=== PATIENT | female | born 1965 | race Caucasian/White ===

== ENCOUNTER → 2022-04-09 16:45 | Outpatient (CLI) | payer OTHER, SELFPAY ==
--- NOTE | ~2022-04-09 | XR_ITS ---
XR knee LT min 4V 04/09/2022 17:19 Indication: Left knee pain Procedure: 4 views left knee Comparison: No prior studies for comparison. Findings: There is severe tricompartment osteoarthritis of the left knee. No acute fracture or trauma tic malalignment. No significant joint effusion. No foreign bodies. Impression: 1: Severe tricompartment osteoarthritis of the left knee. Reviewed, dictated and finalized at location A. LATORY INTERN Impression: 1: Severe tricompartment osteoarthritis of the left knee.
--- NOTE | ~2022-04-09 | XR_ITS ---
XR knee RT min 4V 04/09/2022 17:20 Indication: Right knee pain Procedure: 4 views right knee Comparison: No prior studies for comparison. Findings: There is severe tricompartment osteoarthritis of the right knee. No acute fracture or traum atic malalignment. Degenerative change most advanced in the medial compartment. Impression: 1: Severe tricompartment osteoarthritis the right knee. Reviewed, dictated and finalized at location A. EMENTATION DIRECTOR Impression: 1: Severe tricompartment osteoarthritis the right knee.
== END ==
PROVIDERS: PCP Nurse Practitioner Family; Visit Provider Nurse Practitioner Family
DX: M17.0 Bilateral primary osteoarthritis of knee (principal)
CPT/HCPCS: 73564

== ENCOUNTER 2023-01-12 08:06 | Outpatient (CLI) | payer OTHER, SELFPAY ==
--- NOTE | 2023-01-12 08:58 | ECG_ITS ---
Measurements Intervals [place] Rate: 56 P: 41 WA: 141 QRS: 33 QRSD: 80 T: 20 QT: 400 QTc: 386 Interpretive Statements SINUS BRADYCARDIA DELAYED PRECORDIAL R/S TRANSITION BASELINE ARTIFACT- I, II, III, AVR, AVL, AVF BORDERLINE ECG NO PREVIOUS ECG AVAILABLE FOR COMPARISON Electronically Signed On 01-12-2023 9:37:40 CDT by Johnnie Grullon D.O.
[2023-01-12 09:24] LABS: Basophils Absolute Auto 0.1 K/mm3 (0.0-0.1); Basophils Percent Auto 1.1 % (0.2-1.2); Eosinophils Absolute Auto 0.2 K/mm3 (0-0.3); Hematocrit 39.4 % (37.0-47.0); Hemoglobin 12.9 g/dL (12.0-15.0); Immature Granulocyte Absolute 0.01 K/mm3 (0.00-0.031); Immature Granulocyte Percent A 0.2 % (0-0.5); Lymphocytes Percent Auto 40.8 % (18.3-44.2); Mean Corpuscular HGB Conc 32.7 g/dl (32-36); Mean Corpuscular Volume 91.6 fl (80-100); Mean Platelet Volume 11.7 fl (7.4-10.4); Monocytes Absolute Auto 0.4 K/mm3 (0.1-0.6); Monocytes Percent Auto 6.7 % (2.6-8.5); Neutrophils Absolute Auto 2.6 K/mm3 (1.3-6.7); Neutrophils Percent Auto 48.2 % (45.5-73.1); Platelet Count Result 207 k/mm3 (150-375); Red Cell Distribution Width 12.9 % (11.5-14.5); White Blood Count 5.4 K/mm3 (4.5-10.0)
[2023-01-12 09:32] LABS: Estimated Glomerular Filt Rate > 60; Glucose 95 mg/dL (65-110)
[2023-01-12 09:51] LABS: Urine Cotinine NEGATIVE
== END 2023-01-12 08:07 | disposition home or self-care (01) ==
PROVIDERS: PCP Nurse Practitioner Family; Visit Provider Orthopaedic Surgery
DX: M17.12 Unilateral primary osteoarthritis, left knee (principal); Z01.818 Encounter for other preprocedural examination; R94.31 Abnormal electrocardiogram [ECG] [EKG]
CPT/HCPCS: 80307; 82040; 82565; 82947; 83036; 85025; 86850; 86900; 86901; 87081; 93005

== ENCOUNTER 2023-01-24 00:51 | Day surgery (SDC) | payer OTHER, SELFPAY ==
[2023-01-12 08:19] VITALS: BMI 34.9
--- NOTE | 2023-01-12 08:42 | PC.NURSE ---
Report to the Outpatient Waiting Room, entrance under the green pavilion located off [facility], at time _0600 on date __01/24/23 . Planned Procedure Time: ___0730 . Time changes happen often and if your time is changed the preop area will call you the afternoon before. - You and your visitor will be asked to self-screen and do not enter if you have any COVID symptoms. - A mask is optional within the hospital at this time. Patients may have clear liquids (water, carbonated beverages, clear teas, apple juice) until 3 hours prior to surgery with a maximum of 20 ounces. - No food from midnight until time of surgery - Infants may have breast milk until 4 hours before surgery, infant formula 6 hours prior to surgery. - Children will be allowed to drink immediately following surgery. If applicable, please bring a bottle or sippy cup to assist with drinking. Juice, water, soda, and popsicles are readily available. For infants on formula, please bring formula the day of surgery. Pacifiers are allowed. Take the following medications with a SIP of water the morning of surgery: ____NONE DO NOT STOP ANY OF YOUR OTHER PRESCRIPTION MEDICATIONS PRIOR TO SURGERY ?EXCEPT THE FOLLOWING Medications to discontinue per physician __ALL VITAMINS AND SUPPLEMENTS 3 DAYS PRE OP. LAST DOSE 01/20/23 Please no make-up, nail martiniquais, hairspray, perfume, deodorant, or body powder the day of surgery. No jewelry (including any body piercings) or valuables the day of surgery, leave them at home. Please take a shower or bath the night before, or the morning of, surgery with an antibacterial soap. Wear comfortable, loose fitting clothing. Children are encouraged to wear pajamas. - Jewelry must be removed prior to entering the operating room. Rings and piercings that are not removed may be cut off. - The hospital will not accept responsibility for valuables. - Please leave all valuables, including medications, at home the day of surgery. If you are going home after surgery, a licensed regional intermodal truck driver must drive you home. - NO public transportation without another adult if you receive anesthesia. - We recommend that an adult stay with you for 24 hours following discharge. - We also recommend that you do not drive, make important decision, drink alcoholic beverages, or take any drugs that were not prescribed by your health care provider for at least 24 hours after your discharge time. For Pediatric surgeries, we recommend two adults accompany the child home. Follow any additional instructions given to you from your surgeon. If you or anyone in your household have experienced Covid symptoms in the past week, please notify your surgeon or the nurse liaison at the phone number below for possible testing. VERBAL AND WRITTEN instructions given to _PATIENT and asked if any additional questions and then verbalized understanding. Patient advised to call surgeon office or pre surgery nurse liaison [phone] if any additional questions.
[2023-01-12 08:57] VITALS: BP 136/97; PULSE 65; RESP 18; TEMP 36.8; O2SAT 99
[2023-01-24] VITALS (15 sets, daily range): BP systolic 100–143; BP diastolic 61–86; PULSE 63–103; RESP 11–18; TEMP 36.2–37.2; O2SAT 88–100
--- NOTE | ~2023-01-24 | XR_ITS ---
EXAMINATION: [id number] DATE: 01/24/2023 10:26 INDICATION: Postoperative evaluation following left total knee arthroplasty. TECHNIQUE: Anteroposterior and lateral views of the left knee were obtained. COMPARISON: None. FINDINGS: Left total knee arthroplasty without patellar resurfacing appears well seated and in near anatomic al ignment. No fractures identified. Proximal and distal patellar enthesophytes with large heterotopic ossicle at the distal quadriceps tendon. Expected postoperative subcutaneous, intramedullary and intr a-articular gas. Cluster of multiple phleboliths seen in the subcutaneous fat along the medial aspect of the proximal calf. IMPRESSION: 1. Left total knee arthroplasty, negative for postoperative purposes. Reviewed, dictated and finalized at location A.
[2023-01-24] MEDS: ACETAMINOPHEN 500 MG TABLET 1000 MG PO (06:45)
--- NOTE | 2023-01-24 06:51 | WPDANESEPPF ---
Anes - Initial Pre Proc Eval Procedure: Operation Date: 01/24/23 07:30 Proposed Procedures p Left Total Knee Arthroplasty - Gene Fonseca MD Date/Time: 01/24/23 06:51 Surgeon: Gene Fonseca MD Pre Op Diagnosis: O A Lt Knee Patient Data Age: 57 Gender: F Height: 1.63 m Weight: 92.4 kg Last Vital Signs Temp 36.8 C 01/12/23 08:57 Pulse 65 01/12/23 08:57 Resp 18 01/12/23 08:57 BP 136/97 H 01/12/23 08:57 Pulse Ox 99 01/12/23 08:57 O2 Del Method Room Air 01/12/23 08:57 Allergies Allergy/AdvReac Type Severity Reaction Status Date / Time lisinopril Allergy Intermediate Headache Verified 01/19/23 09:00 Home Medications Medication Instructions Recorded Confirmed Type aspirin 81 mg chewable tablet 81 mg PO DAILY 05/26/22 01/19/23 History (Bernice Chewable Low Dose Aspirin) losartan 50 mg tablet 50 mg PO DAILY 05/26/22 01/19/23 History multivitamin 1 tablet PO DAILY 05/26/22 01/19/23 History calcium 600 mg capsule 1 mg PO QPM 01/12/23 01/19/23 History cetirizine 10 mg tablet (Zyrtec) 10 mg PO DAILY 01/12/23 01/19/23 History ibuprofen 600 mg tablet 600 mg PO Q6H PRN Pain 01/12/23 01/19/23 History omega-3 fatty acids 500 mg capsule 500 mg PO DAILY 01/12/23 01/19/23 History rivaroxaban 10 mg tablet (Xarelto) 10 mg PO DAILY PE prophylaxis s/p 01/19/23 01/19/23 Rx surgery #14 tabs Patient hx anesthesia problems: none Family hx anesthesia problems: none Results Review: All pre-operative results and documents have been reviewed as part of the pre-operative evaluation. [facility] Past Medical History Medical History Arthritis Degenerative arthritis of knee, bilateral History of blood clots right leg- 09/2014 Morbid obesity Surgical History Surgical History History of surgery on lower extremity 2014- detached quad Family History Family History Grandparent Cancer Heart disease Father Hypertension Heart disease Sibling Hypertension Mother Heart disease Social History Social History Smoking packs per day: 0.5 Smoking cigarettes per day: 10.0 Years smoked: 4 Smoking pack-years: 2.00 Smoking status: Former smoker Tobacco type: cigarettes Smoking end date: 05/09/86 Additional smoking assessment comments: DENIES ANY FORM OF TOBACCO USE Alcohol intake: former Drinks per week: 5 Alcohol use details: STOPPED DRINKING JULY 2022-WEIGHT LOSS Substance use type: does not use Lack of Transportation: No Lack of Food: Never True Current Housing: I Have Housing Concerned About Future Housing: No Difficulty Paying Gas/Electric Bills: No Difficulty Paying for Meds: No Currently Unemployed: No Education: High School Diploma/GED Difficulty w/ Childcare or Family Care: No Living arrangements: with family Occupation/Education: occupation 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 Informed Consent: The patient's anesthetic plan and its attendant risks and benefits were discussed with the patient/family/POA. Questions were solicited and answers provided to the satisfaction of the patient/family/POA.
[2023-01-24] MEDS: TRANEXAMIC ACID 1,000MG/ISO100 1,000 MG/100 ML BAG 200 MG IVPB (07:00)
[2023-01-24] MEDS: LACTATED RINGERS 1,000 ML 30 ML IV CONT ×2 (07:00→10:15)
--- NOTE | 2023-01-24 07:08 | WPDHPUPDATE1 ---
History and Physical Update Update Date/Time: 01/24/23 07:08 History and Physical has been reviewed, including an updated exam of the patient. There are NO changes in the patient's condition. Risks, benefits, and alternatives have been discussed and questions answered. Patient agrees to proceed with procedure.
--- NOTE | 2023-01-24 07:27 | WPDANESPNB ---
Anes - Peripheral Nerve Block Date/Time: 01/24/23 07:27 I have discussed with the patient/family/POA the placement of a peripheral nerve block for post-operative pain management, including associated risks, benefits, complications, and side effects. Alternative methods of post-operative analgesia were detailed. Questions were solicited and answers provided to the satisfaction of the patient/family/POA. Time-Out: A pre-procedural Time-Out was completed immediately before starting the procedure and confirmed: Patient Identification, Site, Procedure, Patient Position and the Availability of Requisite Equipment. Clinical Indications: Acute post-operative pain management requested by the operative surgeon. Nerve Block Insertion Note Anes-nerve block: adductor canal left Patient position: supine Skin prep: chlorhexidine Needle: 22 gauge, stimulating, insulated echogenic needle. Needle length: 80 mm Technique: ultrasound Injectate: bupivacaine 0.5% with epi 5 mcg/ml (30cc no epi) and dexamethasone (mg) Observations: tolerated well Complications: none Procedure start time:: 721 Procedure end time:: 728
[2023-01-24] MEDS: ceFAZolin 2 GM/D5W 50 ML 2 GM/50 ML BAG IVPB ×2 (07:28→16:36)
[2023-01-24] MEDS: ceFAZolin SODIUM 1 GM VIAL 2 GM IV PUSH (09:10)
--- NOTE | 2023-01-24 10:10 | P.OP_ITS ---
Procedure Note - Detailed Date of Procedure 01/24/23 Pre-op Diagnosis O A Lt Knee Post-op Diagnosis Same Procedure Performed Left total knee replacement with patelloplasty, no patellar resurfacing Surgeon Gene Fonseca MD Mechanical Systems Designer Andriy Avelar Anesthesia General Description of Procedure The patient was identified and proper site identified. In the preop holding area the anesthesia team performed a left-sided sub sartorial block after which the patient was taken to the operating room and transferred to the OR table positioning supine taking care to pad the torso and extremities. After general anesthetic induction and intubation a nonsterile tourniquet was placed high on the left thigh. The left lower extremity was prepped and draped in the usual sterile fashion. The extremity was exsanguinated and with the knee flexed tourniquet was inflated to 300 mmHg remaining up for approximately 73 minutes. An anterior midline incision was made and a modified medial parapatellar approach was used. Infra and suprapatellar fat pads were excised. Patellar marginal osteophytes were debrided. Using the intramedullary guide the distal femur was cut in the proper orientation for the size 7 femoral component. Using the extramedullary guide the tibia was cut perpendicular to the long axis protecting collateral ligaments and popliteal structures. It was sized to a 7M. Flexion and extension gaps were balanced. Trial reduction was undertaken and the weight-bearing line was noted to passed through the center of the joint. Proximal tibia was drilled and punched in the proper orientation for the real component. Trial components were removed. The bone surfaces were washed with pulsatile lavage and dried. The real components were cemented simultaneously. The knee was held in extension until the cement had cured. Excess cement was removed from the joint. After trialing it was determined that the 11 mm insert gave full range of motion from 0-120 degrees of flexion and the patella tracked in the femoral groove with no lift-off. After final lavage the joint the real 11 insert was placed and secured with a locking bar. A Betadine and saline wash was placed into the wound and allowed to sit for approximately 3 minutes and then evacuated. Periarticular tissues were infiltrated with 60 cc of the arthroplasty solution. Surgicel powder was applied into the wound during the closure. The extensor mechanism was repaired with #2 Vicryl suture and 0 looped PDS suture. Subcu was reapproximated with 2. Vicryl, 3-0 Monocryl, 2-0 Quill and tissue adhesive for the skin. A sterile dressing was applied. She tolerated the procedure well, was awakened and extubated, transferred to the bed and was taken to recovery area in stable condition. There were no known intraoperative complications. Perioperative antibiotics were administered. Estimated Blood Loss 100 Tourniquet Time 73 Drains No Packing No Pathology None sent Complications No immediate complications Condition Stable Disposition PACU [facility] Billing Surgery - Charge Forward: Surgery Billing ([id number])
[2023-01-24] MEDS: fentaNYL CITRATE INJ (*CRX) 100 MCG/2 ML VIAL 25 MCG IV PUSH ×6 (10:22→10:38)
[2023-01-24] MEDS: HYDROmorphone HCL INJ (*CRX) 1 MG/ML SYR 0.5 MG IV PUSH ×2 (10:40→10:45)
--- NOTE | 2023-01-24 11:48 | ADMGEN ---
This patient, Argenis Scott, was admitted to Medical Room 242-. Patient/family oriented to hospital policies and general routines including ID bracelet, bed and alarms, visiting hours, pain management, procedures, bathroom and other care routines, personal items, smoking policy, room service/diet, and visiting hours. Information on how to activate the Rapid Response Team has been discussed. Patient/Family are encouraged to report perceived risks to care and to ask questions if they do not understand what they are told or what they should do.
[2023-01-24] MEDS: SODIUM CHLORIDE 0.9% IV 1,000 ML 125 ML IV CONT (12:24)
[2023-01-24] MEDS: oxyCODONE/ACETAMINOPHEN (*CRX) 5-325 MG TABLET 1 TABLET PO ×3 (12:28→20:41)
[2023-01-24] MEDS: SENNA/DOCUSATE SODIUM TABLET 2 TAB PO (16:36)
[2023-01-24] MEDS: CELECOXIB 200 MG CAPSULE PO (16:36)
[2023-01-24] MEDS: CALCIUM CARBONATE (OSCAL) 500 MG TABLET PO (17:52)
[2023-01-24] MEDS: FAMOTIDINE 20 MG TABLET PO (20:41)
[2023-01-25] MEDS: ceFAZolin 2 GM/D5W 50 ML 2 GM/50 ML BAG IVPB ×2 (00:51→10:31)
[2023-01-25] MEDS: oxyCODONE/ACETAMINOPHEN (*CRX) 5-325 MG TABLET 1 TABLET PO ×4 (00:51→12:28)
[2023-01-25 01:01] VITALS: BP 99/63; PULSE 63; RESP 17; TEMP 36.6; O2SAT 100
[2023-01-25 05:00] VITALS: BP 117/73; PULSE 71; RESP 17; TEMP 36.6; O2SAT 100
--- NOTE | 2023-01-25 07:53 | PM.DS ---
DS: Admitting Diagnosis Discharge Date 01/25/2023 Admitting Diagnosis Left knee osteoarthritis DS: Discharge Diagnosis Discharge Diagnosis (1) Status post total left knee replacement: Code(s): Z96.652 - Presence of left artificial knee joint Status: Acute Plan 57-year-old female postop day 1 after left total knee arthroplasty and patelloplasty with Dr. Fonseca. Overall doing very well and was able to get up and mobilize with physical therapy without issue yesterday. She will continue to use the walker as a gait aid. Dressing over the knee can come off in a couple of days and then she will leave it open to air. She is to inform us if she notices any drainage from the incision. She will take Xarelto 1 time daily for 2 weeks for DVT prophylaxis. Therapy has been scheduled to start next week. She is also scheduled to be seen in our office for wound check in 2 weeks. She will call us if she has any further questions or concerns regarding her care. DS: Summary Hospital Course Reason for hospitalization: Observation after outpatient procedure Hospital Course: 57-year-old female admitted for observation after outpatient left total knee arthroplasty. Uneventful overnight stay. Pain is well controlled. She will continue to mobilize with physical therapy prior to discharge. Status at Discharge Functional status at discharge: uses cane/walker Overall status at discharge: patient is progressing back to baseline Time Spent with Patient Time attestation: Total time spent providing and/or coordinating discharge services: Time spent: Less than 30 minutes Exam Const: General: cooperative, comfortable and no acute distress; No confusion Orientation/consciousness: No confusion HENMT: Head: normal to inspection Ears: hearing grossly normal bilaterally Mouth: Yes moist mucous membranes Eyes: General: appearance normal, both eyes and all related structures Resp: Effort & Inspection: normal respiratory effort and able to speak in complete sentences GI: Inspection: normal to inspection Skin: General skin exam: normal color and no erythema Neuro: General: No confusion Cranial nerves: Yes Normal hearing present Speech: normal speech Sensory Exam: normal sensation Extrem: Other: Exam of the left knee demonstrates a clean and dry surgical dressing. There is appropriate amount of swelling at the left knee, consistent with recent total knee arthroplasty. Calves negative. Neurovascular status left lower extremity is intact. Psych: Mental Status: mental status grossly normal Discharge Plan Discharge Patient Disposition: Home, Self-Care Discharge Instructions: 3 times daily for 20 minutes each time, reclining in bed with ice packs over the incision and a pillow underneath the calf of the affected leg, not under the knee. Your wound is glued so it is okay to remove the dressing, get into the shower and get the wound wet in two days. Be sure to read through all the information that came from a my office and the hospital. Most of the answers you will need can be found that material. Call the office with any questions that you cannot find answers to, or concerns you may have. After the Xarelto is completed, start taking one coated 325 mg aspirin daily and do this for four more weeks. Please call [facility] at as soon as possible to arrange for/verify your follow-up appointment to be seen in 2 weeks. Also, call the office with any orthopedic/surgical related questions prior to follow-up. Be sure to get up and move around several times daily but do not overdo it. Take the arthritis formula Tylenol 650 mg tablet on an 8 hour schedule. A good 8 hour schedule is: 6:00 a.m., 2:00 p.m., 10:00 p.m. you may take the prescribed pain medication along with the Tylenol; it is not to be taken instead of the Tylenol. I would like for you to take the Tylenol on a schedule for 2-3 weeks. Use the laxative Senekot S t
--- NOTE | 2023-01-25 08:06 | WPDANESPN ---
Anes - Prog Note Post-Op Date/Time: 01/25/23 08:06 Cardiovascular status: normal Respiratory status: normal Airway patency: baseline Mental status: baseline Post-Op hydration status: normal Vital Signs: Last Vital Signs Temp 36.6 C 01/25/23 05:00 Pulse 71 01/25/23 05:00 Resp 17 01/25/23 05:00 BP 117/73 01/25/23 05:00 Pulse Ox 100 01/25/23 05:00 O2 Del Method Room Air 01/24/23 20:00 O2 Flow Rate 2 01/24/23 11:30 Pain Score (VAS): 10 I/O: Intake & Output 01/24/23 01/25/23 01/25/23 23:59 07:59 15:59 Intake Total 1554 50 Output Total 800 850 Balance 754 -800 Post-procedural complaints: none Patient Feedback: Patient satisfied with anesthetic care.
[2023-01-25 09:16] VITALS: BP 110/71; PULSE 57; RESP 18; TEMP 35.8; O2SAT 100
[2023-01-25] MEDS: SENNA/DOCUSATE SODIUM TABLET 2 TAB PO (10:25)
[2023-01-25] MEDS: LOSARTAN POTASSIUM 50 MG TABLET PO (10:25)
[2023-01-25] MEDS: polyethylene glycoL 3350 17 GM POWD.PACK PO (10:25)
[2023-01-25] MEDS: FAMOTIDINE 20 MG TABLET PO (10:25)
[2023-01-25] MEDS: MULTIVITAMINS THERAPEUTIC TAB (*BKC) 1 TABLET PO (10:26)
[2023-01-25] MEDS: RIVAROXABAN 10 MG TABLET PO (10:26)
[2023-01-25] MEDS: LORATADINE 10 MG TABLET PO (10:26)
[2023-01-25] MEDS: CELECOXIB 200 MG CAPSULE PO (10:26)
== END 2023-01-25 12:40 | disposition home or self-care (01) ==
LOC: ANHSURGERY 09:58 → ANH2MED 11:34
PROVIDERS: PCP Nurse Practitioner Family; Visit Provider Orthopaedic Surgery
PROC: (CPT 27447; principal; 2023-01-24 07:30)
DX: M17.12 Unilateral primary osteoarthritis, left knee (principal); G89.18 Other acute postprocedural pain; Z86.718 Personal history of other venous thrombosis and embolism; Z79.01 Long term (current) use of anticoagulants; Z87.891 Personal history of nicotine dependence; E66.9 Obesity, unspecified; Z68.35 Body mass index [BMI] 35.0-35.9, adult
CPT/HCPCS: 27447; 64449; 73560; 80307; 82040; 82565; 82947; 83036; 85025; 86850; 86900; 86901; 87081; 93005; 97110; 97161; 97165; 97530; 97535; A9270; C1713; J0171; J0690; J1100; J1170; J1885; J2250; J2270; J2405; J2704; J2795; J3010; J7030; J7120

== ENCOUNTER 2023-03-03 14:15 | Outpatient (RCR) | payer OTHER, SELFPAY ==
--- NOTE | 2023-01-31 09:00 | OPREHPOC ---
Outpatient Therapy Plan of Care This is a Multidisciplinary Plan of Care that may contain components documented by all disciplines (PT, OT, and ST.) PT Problem 1 PT Problem #1 Knowledge Deficit PT Goal 1 Goal 1* indep with HEP 2* assistive device education for lesser device as indicated PT Problem 2 PT Problem #2 Pain PT Goal 1 Goal 1* pain rating at 4/10 at worst 2* pt report walking/standing activity tolerance of 30 minutes PT Problem 3 PT Problem #3 Impaired Range of Motion PT Goal 1 Goal decrease circumferential measurement of L knee: 1* superior patella 48 cm 2* mid patella 46 cm 3* inferior to patella 42 cm sitting L knee active ROM: 4* extension 0' 5* flexion 110' PT Problem 4 PT Problem #4 Impaired Strength PT Goal 1 Goal increase strength L KNEE, pt able to perform 20 reps: 1* supine SLR 2* side lying hip abduction 3* sitting knee extension to 0' 4* prone hip extension 5* supine/sit without use of UE to move L leg 6* sit/stand without use of UE's PT Problem 5 PT Problem #5 Impaired Functional Mobil PT Goal 1 Goal 1* 2 minute walking test distance 350' 2* up/down 4 steps without hand railing, indep 3* 5 reps sit/stand 14 seconds
--- NOTE | 2023-01-31 09:00 | PTOPEVAL1 ---
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 Reported Pain Level Pain Score Self Report Additional Pain Score Comments pain range in past few days: 0-8/10; tight, hurts at incision area; decrease pain with ice, elevation and pain meds; taking pain meds every 4 hr- oxycodone increase pain with exercises, up/walking about 10- 15 minutes; have been getting up and walking every hour during day; is standing for light home tasks; sleeping is OK--not waking up due to knee pain Assessment PT Clinical Summary Argenis is s/p L TKR. Prior to surgery she was active. Her history includes surgery in 2013 for L quad rupture and patellar fracture. She is motivated and doing HEP, walking every hour at home. With the evaluation, she has decreased strength of L hip and knee with knee ROM (-5') to 70'; there is edema over L knee with 3 circumferential measurements 4 to 9 cm larger than R; she is using the wheeled walker with decreased hip and knee flexion. Skilled PT services are indicated for modalities to decrease pain and edema, stim to facilitate quad activation; therapeutic exercises to increase L knee ROM and strength, education for gait training and progression of HEP. Plan of Care Interventions Electrical Stimulation,Gait Training,Hot Pack/Cold Pack,Intermittent Compression,Manual Therapy, Neuro Re-education,Patient Education, Therapeutic Activities,Therapeutic Exercise,Other Other Interventions taping PT Services Indicated Yes Treatment Frequency and 2x/wk for 5 w
--- NOTE | 2023-03-03 14:47 | PTOPDC ---
Assessment and note entered by Genny Cazares, PT Evaluation Information Assessment Status Discharge Diagnosis s/p L TKR Onset 01-24-23 Subjective Information returned to work 40 hours/week; use the cane and sometimes without; to see Dr Snell for other knee surgery since Dr Fonseca is retiring; is doing all of her usual home and work tasks; feel comfortable with mobility/ no issues; is ready to be done with therapy and keep doing her exercises at home. Reported Pain Level Pain Score Self Report Pain Score Self Report Additional Pain Score Comments numbness over knee; 0-1/10 sore, achy and tight; NOT painful taking tylenol arthritis; have not been using ice in the past week; instruct on PRN use of ice; can do all standing and walking activities and not have to sit down due to knee pain; also has pain in R knee- to have TKR as soon as she can schedule it. Assessment PT Clinical Summary Argenis has received 10 PT sessions. Active L knee ROM in sitting is 0'- 120' without pain, reports tight at end range of flexion. She has improved in all areas: pain decreased to 1-2/10; ROM of knee; strength of knee; gait without device or cane use; 2 minute walking test distance of 550'' decreased edema over knee with 3/3 of the circumferential measurements; education completed for HEP and gait training. The goals were achieved. Discharge PT services. She is to continue with her HEP and progress walking as tolerated. Plan of Care PT Services Indicated No
== END 2023-03-03 15:08 | disposition home or self-care (01) ==
LOC: ANHPT 14:15
PROVIDERS: PCP Nurse Practitioner Family; Visit Provider Orthopaedic Surgery
DX: Z47.1 Aftercare following joint replacement surgery (principal); Z96.652 Presence of left artificial knee joint
CPT/HCPCS: 97014; 97016; 97110; 97112; 97116; 97140; 97161; 97530; G0283

== ENCOUNTER 2023-05-19 07:55 | Outpatient (CLI) | payer OTHER, SELFPAY ==
[2023-05-19 09:06] LABS: Basophils Absolute Auto 0.1 K/mm3 (0.0-0.1); Basophils Percent Auto 1.1 % (0.2-1.2); Eosinophils Absolute Auto 0.2 K/mm3 (0-0.3); Eosinophils Percent Auto 3.2 % (0-4.4); Hematocrit 39.4 % (37.0-47.0); Hemoglobin 12.6 g/dL (12.0-15.0); Immature Granulocyte Absolute 0.02 K/mm3 (0.00-0.031); Immature Granulocyte Percent A 0.3 % (0-0.5); Lymphocytes Absolute Auto 2.55 K/mm3 (0.9-3.2); Lymphocytes Percent Auto 40.8 % (18.3-44.2); Mean Corpuscular Hemoglobin 30.4 pg (26-34); Mean Corpuscular Volume 95.2 fl (80-100); Mean Platelet Volume 9.9 fl (7.4-10.4); Monocytes Absolute Auto 0.4 K/mm3 (0.1-0.6); Monocytes Percent Auto 5.8 % (2.6-8.5); Neutrophils Absolute Auto 3.1 K/mm3 (1.3-6.7); Neutrophils Percent Auto 48.8 % (45.5-73.1); Platelet Count Result 265 k/mm3 (150-375); Red Blood Count 4.14 M/mm3 (4.2-5.4); White Blood Count 6.3 K/mm3 (4.5-10.0)
[2023-05-19 09:17] LABS: Anion Gap 6 mmol/L (8-16); Blood Urea Nitrogen 16 mg/dL (7-17); Calcium 9.8 mg/dL (8.4-10.2); Carbon Dioxide 30 mmol/L (22-30); Chloride 103 mmol/L (98-107); Estimated Glomerular Filt Rate > 60; Glucose 91 mg/dL (65-110); Potassium 4.8 mmol/L (3.4-5.0); Sodium 139 mmol/L (137-145)
[2023-05-19 10:05] LABS: Hemoglobin A1C 5.1 % (<5.7)
[2023-05-19 10:23] LABS: Urine Cotinine NEGATIVE
== END 2023-05-19 07:56 | disposition home or self-care (01) ==
LOC: ANHSURGERY 08:04
PROVIDERS: PCP Nurse Practitioner Family; Visit Provider Orthopaedic Surgery
DX: Z01.818 Encounter for other preprocedural examination (principal); M17.11 Unilateral primary osteoarthritis, right knee
CPT/HCPCS: 80048; 80307; 82040; 83036; 85025; 87081

== ENCOUNTER 2023-06-13 00:32 | Day surgery (SDC) | payer OTHER, SELFPAY ==
--- NOTE | 2023-05-19 07:46 | PC.NURSE ---
PRE-OP INSTRUCTIONS, PLEASE READ CAREFULLY Report to the Outpatient Waiting Room, entrance under the green pavilion located off [facility], at time _0600_ on date _06/13/23_. Planned Procedure Time: _0730_. PACK A SMALL OVERNIGHT BAG AND LEAVE IN THE CAR ALONG WITH YOUR WALKER Time changes happen often and if your time is changed the preop area will call you the afternoon before. - You and your visitor will be asked to self-screen and do not enter if you have any COVID symptoms. - A mask is optional within the hospital at this time. -VISITING HOURS 8AM-8PM Patients may have clear liquids (water, carbonated beverages, clear teas, apple juice) until 3 hours prior to surgery (0430 AM) with a maximum of 20 ounces. - No food from midnight until time of surgery Take the following medications with a SIP of water the morning of surgery: _TYLENOL IF NEEDED_ DO NOT STOP ANY OF YOUR OTHER PRESCRIPTION MEDICATIONS PRIOR TO SURGERY ?EXCEPT THE FOLLOWING Medications to discontinue per DR. TRAMMELL - _ASPIRIN, IBUPROFEN 7 DAYS PRIOR TO SURGERY, Date to take last dose 06/05/23_ Medications to discontinue per ANESTHESIA - _MULTIVITAMIN 3 DAYS PRIOR TO SURGERY, Date to take last dose 06/09/23_ Please no make-up, nail bengali, hairspray, perfume, deodorant, or body powder the day of surgery. No jewelry (including any body piercings) or valuables the day of surgery, leave them at home. Please take a shower or bath the night before, or the morning of, surgery with an antibacterial soap. Wear comfortable, loose fitting clothing. - Jewelry must be removed prior to entering the operating room. Rings and piercings that are not removed may be cut off. - The hospital will not accept responsibility for valuables. - Please leave all valuables, including medications, at home the day of surgery. If you are going home after surgery, a licensed local company truck driver must drive you home. - NO public transportation without another adult if you receive anesthesia. - We recommend that an adult stay with you for 24 hours following discharge. - We also recommend that you do not drive, make important decision, drink alcoholic beverages, or take any drugs that were not prescribed by your health care provider for at least 24 hours after your discharge time. Follow any additional instructions given to you from your surgeon. If you or anyone in your household have experienced Covid symptoms in the past week, please notify your surgeon or the nurse liaison at the phone number below for possible testing. Instructions given to _PATIENT_and asked if any additional questions and then verbalized understanding. Patient advised to call surgeon office or pre surgery nurse liaison [phone] if any additional questions.
[2023-05-19 08:24] VITALS: BP 140/80; PULSE 64; RESP 18; TEMP 36.6; O2SAT 100; BMI 34.2
--- NOTE | 2023-06-10 07:53 | PM.IMHP ---
H&P: HPI History of Present Illness Date/Time: 06/10/23 07:53 Chief Complaint: Right knee DJD Narrative: 58 Year old female presents today for a right total arthroplasty. patient has been having pain in her knees for years. She had left total knee arthroplasty done last year and had a good recovery he is happy with her results. She has severe medial compartment osteoarthritis in the right knee with continued symptoms. She has tried different nonsurgical approaches to treat the symptoms but they have not improved. She has pain on a daily basis and is affecting her daily lifestyle. She would like to proceed with total knee arthroplasty at this point. Review of Systems Review of Systems: All systems reviewed & are unremarkable except as noted in HPI and below PMFSH Past Medical History Medical History Arthritis Degenerative arthritis of knee, bilateral History of blood clots right leg- 09/2014 Morbid obesity Surgical History Surgical History History of surgery on lower extremity 2013- quad Status post total left knee replacement With patellaplasty 01/24/2023 Family History Family History Grandparent Cancer Heart disease Father Hypertension Heart disease Sibling Hypertension Mother Heart disease Social History Social History Smoking packs per day: 0.5 Smoking cigarettes per day: 10.0 Years smoked: 4 Smoking pack-years: 2.00 Smoking status: Former smoker Tobacco type: cigarettes Second hand tobacco smoke exposure: No Smoking end date: 05/09/86 Additional smoking assessment comments: PT DENIES ALL FORMS OF TOBACCO USE Alcohol intake: current Drinks per week: 5 Alcohol use details: STOPPED 07/29-03/31 FOR WEIGHT LOSS - NOW MAYBE 1 DRINK EVERY OTHER WEEEK Substance use: never Substance use type: does not use Lack of Transportation: No Lack of Food: Never True Current Housing: I Have Housing Concerned About Future Housing: No Difficulty Paying Gas/Electric Bills: No Difficulty Paying for Meds: No Currently Unemployed: No Education: High School Diploma/GED Difficulty w/ Childcare or Family Care: No Living arrangements: with family Occupation/Education: occupation 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/ Spiritual care concerns: No Meds Home Medications and Allergies Home Medications Medication Instructions Recorded Confirmed Type losartan 50 mg tablet 50 mg PO DAILY 05/26/22 05/19/23 History multivitamin 1 tablet PO DAILY 05/26/22 05/19/23 History cetirizine 10 mg tablet (Zyrtec) 10 mg PO DAILY 01/12/23 05/19/23 History acetaminophen 650 mg 650 mg PO Q12H PRN Pain 02/08/23 05/19/23 History tablet,extended release (Tylenol Arthritis Pain) aspirin 81 mg capsule 81 mg PO DAILY 05/19/23 05/19/23 History ibuprofen 600 mg tablet 600 mg PO Q6H PRN Pain 05/19/23 05/19/23 History Allergies Allergy/AdvReac Type Severity Reaction Status Date / Time camphor [From Biofreeze] Allergy Intermediate Rash Verified 05/19/23 08:19 lisinopril Allergy Intermediate Headache Verified 05/19/23 08:19 menthol [From Biofreeze] Allergy Intermediate Rash Verified 05/19/23 08:19 Exam Narrative: female she is 5 ft 4 190 lb BMI is 34. She has moderate tenderness along medial joint line the right knee. Moderate tenderness over the lateral joint line as well. Mild pain with patellofemoral grind. Hip range of motion is full without discomfort range of motion of the knee is from 0-140 degrees with normal stability. 2+ dorsalis pedis pulse. Normal sensation to the right lower extremity without edema Resp: Auscultation: clear to auscultation bilaterally Cardio: Rate: regul
[2023-06-13] VITALS (15 sets, daily range): BP systolic 100–138; BP diastolic 58–88; PULSE 65–84; RESP 12–18; TEMP 36.1–36.9; O2SAT 95–100
--- NOTE | ~2023-06-13 | XR_ITS ---
EXAMINATION: [id number] DATE: 06/13/2023 11:14 INDICATION: Postoperative evaluation following right total knee arthroplasty. TECHNIQUE: Anteroposterior and lateral views of the right knee were obtained. COMPARISON: None. FINDINGS: Right total knee arthroplasty with patellar resurfacing appears well seated and in near anatomic alig nment. No fractures identified. Prominent enthesophytes along the proximal and distal margins of the patella. Expected postoperative subcutaneous and intra-articular gas. IMPRESSION: 1. Right total knee arthroplasty, negative for postoperative purposes. Reviewed, dictated and finalized at location A. FICATION SPECIALIST
[2023-06-13] MEDS: LACTATED RINGERS 1,000 ML 30 ML IV CONT ×2 (06:15→11:05)
[2023-06-13] MEDS: ACETAMINOPHEN 500 MG TABLET 1000 MG PO (06:19)
[2023-06-13] MEDS: TRANEXAMIC ACID 1,000MG/ISO100 1,000 MG/100 ML BAG 200 MG IVPB (06:19)
[2023-06-13] MEDS: VANCOMYCIN 1,250 MG/NS 250 ML BAG 166.67 MG IVPB (06:25)
--- NOTE | 2023-06-13 06:45 | WPDANESEPPF ---
Anes - Initial Pre Proc Eval Procedure: Operation Date: 06/13/23 07:30 Proposed Procedures p Right Total Knee Arthroplasty - Sebas Snell MD Date/Time: 06/13/23 06:45 Surgeon: Sebas Snell MD Pre Op Diagnosis: OA right knee Patient Data Age: 58 Gender: F Height: 1.63 m Weight: 92.7 kg Last Vital Signs Temp 36.6 C 05/19/23 08:24 Pulse 64 05/19/23 08:24 Resp 18 05/19/23 08:24 BP 140/80 05/19/23 08:24 Pulse Ox 100 05/19/23 08:24 O2 Del Method Room Air 05/19/23 08:24 Allergies Allergy/AdvReac Type Severity Reaction Status Date / Time camphor [From Biofreeze] Allergy Intermediate Rash Verified 06/13/23 06:35 lisinopril Allergy Intermediate Headache Verified 06/13/23 06:35 menthol [From Biofreeze] Allergy Intermediate Rash Verified 06/13/23 06:35 Home Medications Medication Instructions Recorded Confirmed Type losartan 50 mg tablet 50 mg PO DAILY 05/26/22 06/13/23 History multivitamin 1 tablet PO DAILY 05/26/22 06/13/23 History cetirizine 10 mg tablet (Zyrtec) 10 mg PO DAILY 01/12/23 06/13/23 History acetaminophen 650 mg 650 mg PO Q12H PRN Pain 02/08/23 05/19/23 History tablet,extended release (Tylenol Arthritis Pain) aspirin 81 mg capsule 81 mg PO DAILY 05/19/23 06/13/23 History ibuprofen 600 mg tablet 600 mg PO Q6H PRN Pain 05/19/23 06/13/23 History Patient hx anesthesia problems: none Family hx anesthesia problems: none Results Review: All pre-operative results and documents have been reviewed as part of the pre-operative evaluation. [facility] Past Medical History Medical History Arthritis Degenerative arthritis of knee, bilateral History of blood clots right leg- 09/2014 Morbid obesity Surgical History Surgical History History of surgery on lower extremity 2013- detached quad Status post total left knee replacement With patellaplasty 01/24/2023 Family History Family History Grandparent Cancer Heart disease Father Hypertension Heart disease Sibling Hypertension Mother Heart disease Social History Social History Smoking packs per day: 0.5 Smoking cigarettes per day: 10.0 Years smoked: 4 Smoking pack-years: 2.00 Smoking status: Former smoker Tobacco type: cigarettes Second hand tobacco smoke exposure: No Smoking end date: 05/09/86 Additional smoking assessment comments: PT DENIES ALL FORMS OF TOBACCO USE Alcohol intake: current Drinks per week: 5 Alcohol use details: STOPPED 07/29-03/31 FOR WEIGHT LOSS - NOW MAYBE 1 DRINK EVERY OTHER WEEEK Substance use: never Substance use type: does not use Lack of Transportation: No Lack of Food: Never True Current Housing: I Have Housing Concerned About Future Housing: No Difficulty Paying Gas/Electric Bills: No Difficulty Paying for Meds: No Currently Unemployed: No Education: High School Diploma/GED Difficulty w/ Childcare or Family Care: No Living arrangements: with family Occupation/Education: occupation 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 Informed Consent: The patient's anesthetic plan and its attendant risks and benefits were discussed with the patien
--- NOTE | 2023-06-13 07:18 | WPDHPUPDATE1 ---
History and Physical Update Update Date/Time: 06/13/23 07:18 History and Physical has been reviewed, including an updated exam of the patient. There are NO changes in the patient's condition. Risks, benefits, and alternatives have been discussed and questions answered. Patient agrees to proceed with procedure.
[2023-06-13] MEDS: ceFAZolin 2 GM/D5W 50 ML 2 GM/50 ML BAG IVPB (07:30)
[2023-06-13] MEDS: ceFAZolin SODIUM 1 GM VIAL 3 GM (08:21)
[2023-06-13] MEDS: GENTAMICIN BONE CEMENT REFOBACIN 1 EACH TOPICAL (08:23)
[2023-06-13] MEDS: ceFAZolin SODIUM 1 GM VIAL 2 GM IV PUSH (09:42)
[2023-06-13] MEDS: TRANEXAMIC ACID 1,000 MG/10 ML AMPUL 1000 MG IV PUSH (09:42)
[2023-06-13] MEDS: KETOROLAC 15 MG/ML VIAL (*BKC) IV PUSH (10:11)
--- NOTE | 2023-06-13 11:09 | W.PM.PROC2 ---
Procedure Note - Detailed Date of Procedure 06/13/23 Pre-op Diagnosis OA right knee Post-op Diagnosis Same Procedure Performed Right total knee arthroplasty Surgeon Sebas Snell MD Grinder Set Up Operator Shauna Singh Anesthesia General Findings Testing 123 Description of Procedure Patient was brought to the operating room and general anesthesia was administered. She received 2 g of Ancef weight based vancomycin 1 g of TXA preoperatively and the right leg was prepped draped usual fashion. She had full extension with negative bounce under anesthesia. The limb was exsanguinated and tourniquet elevated to 300 mmHg a 7 in longitudinal incision was made and a standard parapatellar arthrotomy utilized. The central quadriceps tendon had pronounced interstitial tearing as well as exposed interstitial dystrophic calcifications. We carefully debrided the exposed dystrophic calcifications. I could feel additional contained dystrophic calcifications in the lateral insertion of the quadriceps tendon but since they were not exposed we left these alone. Large loose ossicle at the lateral margin of the patella was removed and a conservative lateral facetectomy was performed. There were degenerative changes in the patella and it was mildly scalloped but smooth without grooving and I felt it would be best to treat this nonsurgically as she is at risk for developing a quadriceps tendon rupture some point the future and she has already had 1 on the other leg and repair would be compromised by having a resurfaced patella. A guide delilah was inserted down the femoral canal after aspiration of canal contents using the 5 degree valgus cutting bushing, 9 mm of bone removed the distal femur. Next the tibial plateau was cut. We cut about 2 mm under the low eburnated portion of the anteromedial tibial plateau and this gave an appropriate cut. Meniscal remnants were excised and the PCL recessed. The flexion gap measured 8 mm medially and 11 mm laterally. The femoral sizing guide was applied the distal femur set at 4? of external rotation which matched [place] line. We applied the 65 cutting block and this made the anterior cut a little bit too proud off the anterior cortex and appeared the 65 degree too wide. We applied the 62.5 cutting block and this gave a a flush anterior cut with the cortex. Posterior chamfer cuts were made in the 62.5 femur fit nicely. The tibia was sized to a size 71 which fit line to line anteromedial to posterolateral. This was punched at proper rotation. We trialed with the 10 insert. The knee came out to full extension without a bounce. With the arthrotomy towel clipped, there was a barely perceptible by the resident. There is a 0.5 mm of play medially 1 laterally in extension and appropriate anterior posterior drawer stability at 90? just a few mm. We had removed the protruding medial tibial plateau osteophyte earlier. Large posterior femoral osteophytes were removed at this time. We replaced the trial components and the knee came out to full extension and had negative bounce with the extensor mechanism towel clipped. [place]elline flexion was to 125 passive to 135. Patellar tracking was excellent all the way through range of motion. Satisfied with this the lug holes with the femoral trial were drilled. The bony surfaces were prepared with a step drill for cement interdigitation bony surfaces thoroughly irrigated and dried. Two batches of methylmethacrylate 1 the gentamicin powder mixed medial applied the 71 vanguard tibial tray and then the 62.5 right CR femoral component. Cement was applied the tibia and pressurized tibial component fully seated cement applied to the femur the femoral component fully seated the knee brought into extension with a an 11 mm 5 1 insert for cement pressurization and tourniquet released at approximately 100 and 5 minutes. The cement was allowed to harden after which excess cement was sought for removed and hemostasis was achieved. We
--- NOTE | 2023-06-13 13:48 | ADMGEN ---
This patient, Argenis Scott, was admitted to [facility] Surg Room 321-02. Patient/family oriented to hospital policies and general routines including ID bracelet, bed and alarms, visiting hours, pain management, procedures, bathroom and other care routines, personal items, smoking policy, room service/diet, and visiting hours. Information on how to activate the Rapid Response Team has been discussed. Patient/Family are encouraged to report perceived risks to care and to ask questions if they do not understand what they are told or what they should do.
[2023-06-13] MEDS: oxyCODONE HCL (*CRX) 5 MG TAB IR PO ×3 (13:57→21:04)
[2023-06-13] MEDS: ACETAMINOPHEN 325 MG TABLET 650 MG PO ×3 (13:57→21:04)
[2023-06-13] MEDS: SENNA/DOCUSATE SODIUM TABLET 2 TAB PO (16:18)
[2023-06-13] MEDS: ceFAZolin 1 GM/NS 50 ML 1 GM/50 ML BAG IVPB (16:19)
[2023-06-13] MEDS: VANCOMYCIN 1,000 MG/NS 250 ML 1,000 MG/250 ML BAG 250 MG IVPB (17:05)
[2023-06-13] MEDS: APIXABAN 2.5 MG TABLET PO (21:04)
[2023-06-14] VITALS: BP 100/67; PULSE 65; RESP 16; TEMP 36.6; O2SAT 98
[2023-06-14] MEDS: oxyCODONE HCL (*CRX) 5 MG TAB IR PO ×3 (00:57→09:34)
[2023-06-14] MEDS: ceFAZolin 1 GM/NS 50 ML 1 GM/50 ML BAG IVPB ×2 (00:57→09:32)
[2023-06-14] MEDS: ACETAMINOPHEN 325 MG TABLET 650 MG PO ×3 (00:57→09:33)
[2023-06-14] MEDS: VANCOMYCIN 1,000 MG/NS 250 ML 1,000 MG/250 ML BAG 250 MG IVPB (05:20)
[2023-06-14 06:02] VITALS: BP 122/84; PULSE 78; RESP 18; TEMP 37.3; O2SAT 100
--- NOTE | 2023-06-14 06:31 | PM.DS ---
DS: Admitting Diagnosis Discharge Date 06/14/2022 Admitting Diagnosis Osteoarthritis right to undergo right knee replacement on 06/13/2022 DS: Summary Hospital Course Hospital Course: Patient has had uneventful postoperative course. Labs were just drawn and not available. She feels well. She was up and walking around quite a bit yesterday I discussed with her that she had rather high grade articular sided partial thickness tearing of the central quadriceps tendon with exposed calcifications at time of arthrotomy and we debrided these calcifications. Hopefully the aggressive healing response and scar tissue formation that typically forms over the deep surface of extensor mechanism will reinforce this degeneration and repeat her risk for rupture spontaneously like she had on the other side the past. For protection I would recommend that she use her wheeled walker for the next 6 weeks weightbearing as tolerated walking normally but her hands on the walker to minimize the risk that she will stumble and lunge onto the right knee which could cause quadriceps rupture. This was explained to the patient. Postoperative instructions as well as her medications were reamed On exam she is intact neurologic status. She does a straight leg raise easily, her wound and dressing are dry without signs of drainage. She has no leg swelling. Patient has history of DVT interestingly while she was recovering from her quadriceps repair the left leg in so we are using Eliquis for 6 weeks for DVT prophylaxis and this was started last evening at 9:00 p.m.. She normally takes a baby aspirin daily for chronic DVT prophylaxis and we will have that on hold and she can not resume her daily baby aspirin on the day of the last dose of Eliquis Time Spent with Patient Time attestation: Total time spent providing and/or coordinating discharge services: DS: Data Data Completed and Pending Labs on day of discharge: Labs from last 24 hours 06/14/23 06/13/23 06:15 06:10 WBC Pending RBC Pending Hgb Pending Hct Pending MCV Pending MCH Pending MCHC Pending RDW Pending Plt Count Pending MPV Pending Immature Gran % (Auto) Pending Neut % (Auto) Pending Lymph % (Auto) Pending [place] % (Auto) Pending Eos % (Auto) Pending Baso % (Auto) Pending Lymph # (Auto) Pending [place] # (Auto) Pending Eos # (Auto) Pending Baso # (Auto) Pending Abs Immat Gran (auto) Pending Absolute Neuts (auto) Pending Absolute Nucleated RBC Pending Nucleated RBC % Pending Sodium Pending Potassium Pending Chloride Pending Carbon Dioxide Pending Anion Gap Pending BUN Pending Creatinine Pending Estim Creat Clear Calc Pending Estimated GFR Pending Glucose Pending Calcium Pending Blood Type A Positive Antibody Screen Negative Discharge Plan Discharge Patient Disposition: Home, Self-Care Discharge Instructions: TYRESE TRAMMELL M.D [facility], [place] [id number] [place] [address] POST-OPERATIVE DISCHARGE INSTRUCTIONS TOTAL KNEE ARTHROPLASTY 1. When resting, do not rest in the chair.When resting, lie on your back, with back flat on the couch or bed, with leg elevated above heart to minimize swelling. You may put a pillow under your head. . Significant swelling could indicate a blood clot and if this occurs call the office (or go to the ER) to have a venous ultrasound. Therefore, do not rest in a chair. 2. At least five times a day spend several minutes stretching your knee into flexion while sitting in the chair and also stretching your knee out straight The abilities to bend your knee fulling and straighten your knee fully are two most important knee functions to focus on during your recovery. 3. It is ok to sit in chair to eat, use the toilet and receive a guest and to do your stretching exercises, but, sitting in a chair will cause your leg to swell. The
[2023-06-14 06:39] LABS: Basophils Absolute Auto 0.1 K/mm3 (0.0-0.1); Basophils Percent Auto 0.5 % (0.2-1.2); Eosinophils Percent Auto 0.2 % (0-4.4); Hematocrit 28.3 % (37.0-47.0); Hemoglobin 8.9 g/dL (12.0-15.0); Immature Granulocyte Absolute 0.06 K/mm3 (0.00-0.031); Immature Granulocyte Percent A 0.5 % (0-0.5); Lymphocytes Absolute Auto 2.47 K/mm3 (0.9-3.2); Lymphocytes Percent Auto 20.6 % (18.3-44.2); Mean Corpuscular HGB Conc 31.4 g/dl (32-36); Mean Corpuscular Hemoglobin 30.8 pg (26-34); Mean Corpuscular Volume 97.9 fl (80-100); Mean Platelet Volume 10.4 fl (7.4-10.4); Monocytes Absolute Auto 0.8 K/mm3 (0.1-0.6); Monocytes Percent Auto 6.8 % (2.6-8.5); Neutrophils Absolute Auto 8.6 K/mm3 (1.3-6.7); Neutrophils Percent Auto 71.4 % (45.5-73.1); Platelet Count Result 208 k/mm3 (150-375); Red Blood Count 2.89 M/mm3 (4.2-5.4); Red Cell Distribution Width 12.2 % (11.5-14.5)
[2023-06-14 06:45] LABS: Anion Gap 3 mmol/L (8-16); Blood Urea Nitrogen 23 mg/dL (7-17); Calcium 8.5 mg/dL (8.4-10.2); Carbon Dioxide 27 mmol/L (22-30); Chloride 105 mmol/L (98-107); Estimated CRCL calculation 83 ml/min; Estimated Glomerular Filt Rate > 60; Glucose 99 mg/dL (65-110); Potassium 4.2 mmol/L (3.4-5.0); Sodium 135 mmol/L (137-145)
[2023-06-14] MEDS: MULTIVITAMINS THERAPEUTIC TAB (*BKC) 1 TABLET PO (09:33)
[2023-06-14] MEDS: CEFDINIR 300 MG CAPSULE PO (09:33)
[2023-06-14] MEDS: LORATADINE 10 MG TABLET PO (09:33)
[2023-06-14] MEDS: polyethylene glycoL 3350 17 GM POWD.PACK PO (09:33)
[2023-06-14] MEDS: LOSARTAN POTASSIUM 50 MG TABLET PO (09:33)
[2023-06-14] MEDS: SENNA/DOCUSATE SODIUM TABLET 2 TAB PO (09:34)
[2023-06-14] MEDS: APIXABAN 2.5 MG TABLET PO (09:34)
[2023-06-14 10:37] VITALS: BP 98/58; PULSE 73; RESP 18; TEMP 36.7; O2SAT 100
--- NOTE | 2023-06-14 11:11 | WPDANESPN ---
Anes - Prog Note Post-Op Date/Time: 06/14/23 11:11 Cardiovascular status: normal Respiratory status: normal Airway patency: baseline Mental status: baseline Post-Op hydration status: normal Vital Signs: Last Vital Signs Temp 36.7 C 06/14/23 10:37 Pulse 73 06/14/23 10:37 Resp 18 06/14/23 10:37 BP 98/58 L 06/14/23 10:37 Pulse Ox 100 06/14/23 10:37 O2 Del Method Room Air 06/13/23 16:31 O2 Flow Rate 6 06/13/23 11:20 Pain Score (VAS): 07/16 I/O: Intake & Output 06/13/23 06/14/23 06/14/23 23:59 07:59 15:59 Intake Total 300 850 240 Balance 300 850 240 Laboratory Tests 06/14/23 06:15 06/14/23 06:15 06/14/23 06:15 WBC 12.0 H RBC 2.89 L Hgb 8.9 L D Hct 28.3 L MCV 97.9 MCH 30.8 MCHC 31.4 L RDW 12.2 Plt Count 208 MPV 10.4 Immature Gran % (Auto) 0.5 Neut % (Auto) 71.4 Lymph % (Auto) 20.6 [place] % (Auto) 6.8 Eos % (Auto) 0.2 Baso % (Auto) 0.5 Lymph # (Auto) 2.47 [place] # (Auto) 0.8 H Eos # (Auto) 0.0 Baso # (Auto) 0.1 Abs Immat Gran (auto) 0.06 H Absolute Neuts (auto) 8.6 H Absolute Nucleated RBC 0.0 Nucleated RBC % 0.0 Sodium 135 L Potassium 4.2 Chloride 105 Carbon Dioxide 27 Anion Gap 3 L BUN 23 H Creatinine 0.70 Estim Creat Clear Calc 83 Estimated GFR > 60 Glucose 99 Calcium 8.5 Post-procedural complaints: none Patient Feedback: Patient satisfied with anesthetic care.
== END 2023-06-14 11:26 | disposition home or self-care (01) ==
LOC: ANHSURGERY 05:51 → ANH3MEDSUR 13:40
PROVIDERS: PCP Nurse Practitioner Family; Visit Provider Orthopaedic Surgery
PROC: (CPT 27447; principal; 2023-06-13 07:30)
DX: M17.11 Unilateral primary osteoarthritis, right knee (principal); Z79.82 Long term (current) use of aspirin; E66.9 Obesity, unspecified; Z68.35 Body mass index [BMI] 35.0-35.9, adult; Z87.891 Personal history of nicotine dependence; Z86.718 Personal history of other venous thrombosis and embolism
CPT/HCPCS: 27447; 36415; 73560; 80048; 80307; 82040; 83036; 85025; 86850; 86900; 86901; 87081; 97110; 97116; 97161; 97165; 97530; 97535; A9270; C1713; C1776; J0171; J0330; J0690; J1100; J1170; J1885; J2250; J2270; J2405; J2704; J2795; J3010; J3370; J7120

== ENCOUNTER 2023-06-27 15:00 | Outpatient (CLI) | payer OTHER, SELFPAY ==
--- NOTE | ~2023-06-27 | US_ITS ---
EXAMINATION: US venous doppler LE RT DATE: 06/27/2023 15:32 INDICATION: EDEMA OF LE . TECHNIQUE: Grayscale images without and with compression and Doppler images of the right lower extrem ity veins were obtained. COMPARISON: None FINDINGS: The right common femoral vein, profunda (deep) femoral vein, femoral vein, popliteal vein, peroneal v ein, posterior tibial veins, gastrocnemius vein, and greater saphenous vein are patent. IMPRESSION: Patent right lower extremity veins. No evidence of deep venous thrombosis. Reviewed, dictated and finalized at location K. [facility]
== END 2023-06-27 15:01 | disposition home or self-care (01) ==
PROVIDERS: PCP Nurse Practitioner Family; Visit Provider Orthopaedic Surgery
DX: M79.89 Other specified soft tissue disorders (principal); R60.0 Localized edema
CPT/HCPCS: 93971

== ENCOUNTER 2023-07-22 09:00 | Outpatient (RCR) | payer OTHER, SELFPAY ==
--- NOTE | 2023-06-17 13:12 | OPREHPOC ---
Outpatient Therapy Plan of Care This is a Multidisciplinary Plan of Care that may contain components documented by all disciplines (PT, OT, and ST.) PT Problem 1 PT Problem #1 Knowledge Deficit PT Goal 1 Goal 1. Patient will perform independent HEP Target Visit 5 PT Problem 2 PT Problem #2 Pain PT Goal 1 Goal 1. Pt able to perform all work and home activities with pain no higher than 2/10 Target Visit 10 PT Problem 3 PT Problem #3 Impaired Range of Motion PT Goal 1 Goal 1. Improve R knee flexion to 125 to allow for full function and stair navigation Target Visit 10 PT Problem 4 PT Problem #4 Impaired Strength PT Goal 1 Goal 1. Right knee flexion and extension to 5/5
--- NOTE | 2023-06-17 13:12 | PTOPEVAL1 ---
Assessment and note entered by Marisela Centeno DPT Evaluation Information Assessment Status Evaluation Subjective Information Pt is s/p R TKA on 06/13/23. Previous L TKA last year. Highest pain 8/10 and lowest 2/10. Currently ambulating with a rollator. Pt is not doing her normal cooking or cleaning. Has stairs out her back door that she does not need to do. 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 Is able to dress and bathe independently. No walker use before surgery. Patient goal: full range of motion, get back to normal Returns to MD in 2 weeks. Reported Pain Level Pain Score 3: Self Report Assessment PT Clinical Summary The patient is presenting to skilled therapy s/p R TKA on 06/13/23. She presents with decreased knee flexion range of motion, decreased strength and gait impairments which are contributing to her difficulty performing normal activities at home and returning to work. She will benefit from therapy to address these impairments and return to prior level of function. LEFS= 66.25% dysfunction . Plan of Care Interventions Electrical Stimulation,Gait Training,Manual Therapy,Neuro Re-education,Patient/Caregiver Education,Therapeutic Activities,Therapeutic Exercise PT Services Indicated Yes Treatment Frequency and 2 times a week for 10 visits Duration These treatments will address the objective and functional deficits as defined above. The patient will be advanced safely and appropriately in order for the patient to progress towards his/her prior level of function. Additional exercises will be introduced and as well as a comprehensive home exercise program upon discharge, if needed, ?to ensure carryover of functional gains achieved in the clinic. This treatment plan has been reviewed and agreement upon by the patient.
--- NOTE | 2023-07-22 09:29 | OPREHPOC ---
Outpatient Therapy Plan of Care This is a Multidisciplinary Plan of Care that may contain components documented by all disciplines (PT, OT, and ST.) PT Problem 1 PT Problem #1 Knowledge Deficit PT Goal 1 Goal 1. Patient will perform independent HEP Target Visit 5 Progress Met PT Problem 2 PT Problem #2 Pain PT Goal 1 Goal 1. Pt able to perform all work and home activities with pain no higher than 2/10 Target Visit 10 Progress Partially Met Comment 1. doing all activities, 7/10 highest PT Problem 3 PT Problem #3 Impaired Range of Motion PT Goal 1 Goal 1. Improve R knee flexion to 125 to allow for full function and stair navigation Target Visit 10 Progress Partially Met Comment 119 PT Problem 4 PT Problem #4 Impaired Strength PT Goal 1 Goal 1. Right knee flexion and extension to 5/5 Progress Partially Met Comment 1. flexion 5/5 and extension 4+/5
--- NOTE | 2023-07-22 09:29 | PTOPDC ---
Assessment and note entered by Marisela Centeno DPT Evaluation Information Assessment Status Discharge Subjective Information Pt reports she has been feeling good overall, her knee feels better the more she moves. Highest pain in the last week 11/15 and lowest 05/18. Returns to MD Tuesday. Still using a rollator, reports per MD instruction. Pt has returned to work and is doing activities at home. Has been able to walk through the grocery store without limitation. Reported Pain Level Pain Score 2: Self Report Assessment PT Clinical Summary The patient has made excellent progress in therapy . She reports decreased pain overall and demonstrates improved LE strength, improved range of motion from 0-119, and signficantly improved gait speed. She has been able to return to work and all activities at home and in the community. Due to her progress, discharge is recommended at this time. She has been educated in a thorough HEP to continue addressing strength independently and to contact MD and/or PT as needed. LEFS- improved to 25% disability. Plan of Care PT Services Indicated No
== END 2023-07-22 13:35 | disposition home or self-care (01) ==
LOC: ANHPT 09:00
PROVIDERS: PCP Nurse Practitioner Family; Visit Provider Orthopaedic Surgery
DX: Z47.1 Aftercare following joint replacement surgery (principal); M17.11 Unilateral primary osteoarthritis, right knee; Z96.651 Presence of right artificial knee joint
CPT/HCPCS: 97016; 97110; 97140; 97161; 97530

== ENCOUNTER 2024-02-11 09:40 | Outpatient (CLI) | payer OTHER, SELFPAY ==
--- NOTE | ~2024-02-11 | MR_ITS ---
EXAMINATION: MR shoulder RT wo con DATE: 02/11/2024 10:37 INDICATION: generalized right shoulder pain s/p overextending (reaching . TECHNIQUE: Magnetic resonance imaging (MRI) of the right shoulder was performed without intravenous c ontrast. Sequences included axial PD-weighted FS FSE, coronal oblique PD-weighted FS FSE and T2-weigh mauricio FS FSE, and sagittal oblique T2-weighted FS FSE and T1-weighted FSE. COMPARISON: X-ray right shoulder 01/16/2024. FINDINGS: Coracoacromial arch: Mild lateral downsloping of the type I acromion. Acromial tip enthesopathy. Inferiorly directed osteo phytosis. Subacromial narrowing. No subcoracoid narrowing. Rotator cuff: Full-thickness supraspinatus tear with retraction to the 2:00 position and atrophy. Full-thickness te ar of the anterior fibers of the infraspinatus, with retraction to the 2:00 position and atrophy. The re is mild teres minor atrophy. Partial tear of the subscapularis. Biceps tendon and glenoid labrum: Medial subluxation of the long head of biceps tendon which displays thickening and increased signal i ntensity. The short head of the biceps tendon is intact. Notch-like inferior glenoid labral tear. Gen eralized glenoid labral degenerative change. Fluid: Large glenohumeral joint fluid collection with synovial proliferation. Subacromial subdeltoid fluid. Bones/cartilage: Moderate osteoarthritic change at the AC joint and glenohumeral joint. IMPRESSION: Full-thickness superior cuff tear with significant retraction and atrophy. Teres minor atrophy. Parti al subscapularis tear. Medial long head of biceps tendon subluxation and tendinopathy. Moderate AC joint and glenohumeral joint osteoarthritis. Inferior glenoid labral tear, in a background of moderate degenerative change. Large glenohumeral and subacromial subdeltoid fluid collection with synovitis. Reviewed, dictated and finalized at location K. IMPRESSION: Full-thickness superior cuff tear with significant retraction and atrophy. Melissa s minor atrophy. Partial subscapularis tear. Medial long head of biceps tendon subluxation and tendinopathy. Moderate AC joint and glenohumeral joint osteoarthritis. Inferior glenoid labral tear, in a background of moderate degenerative change. Large glenohumeral and subacromial subdeltoid fluid collection with synovitis.
== END 2024-02-11 09:41 | disposition home or self-care (01) ==
LOC: MICIMG 09:42
PROVIDERS: PCP Nurse Practitioner Family; Visit Provider Orthopaedic Surgery
DX: M75.101 Unspecified rotator cuff tear or rupture of right shoulder, not specified as traumatic (principal); M19.011 Primary osteoarthritis, right shoulder; M19.09 Primary osteoarthritis, other specified site; S43.431A Superior glenoid labrum lesion of right shoulder, initial encounter; X58.XXXA Exposure to other specified factors, initial encounter; M65.911 Unspecified synovitis and tenosynovitis, right shoulder
CPT/HCPCS: 73221

== ENCOUNTER 2024-03-26 14:45 | Outpatient (RCR) | payer OTHER, SELFPAY ==
--- NOTE | 2024-03-21 16:28 | OPREHPOC ---
Outpatient Therapy Plan of Care This is a Multidisciplinary Plan of Care that may contain components documented by all disciplines (PT, OT, and ST.) PT Problem 1 PT Problem #1 Knowledge Deficit PT Goal 1 Goal / Goal Update *indep with HEP Target Visit 8 PT Problem 2 PT Problem #2 Impaired Strength PT Goal 1 Goal / Goal Update increase strength of R shoulder/UE, to improve her functional use of her dominant arm for home and self care tasks: in standin reps with hand weight 1* flexion to 90', 4# 2* abduction to 90', 3# 3* ER with elbow at side, 3# Target Visit 8
--- NOTE | 2024-03-21 16:29 | PTOPEVAL1 ---
Assessment and note entered by Genny Cazares, PT Evaluation Information Assessment Status Evaluation ICD-10 Condition Codes (PT) M25.511 Other ICD-10 Condition Codes ( M75.121--complete rotator cuff tear R PT) Onset November 2023 Subjective Information getting into car, reaching across car seat to place purse and lunch bag- instant pain in shoulder; pain in shoulder and could not move R arm; had a large bruise over anterior R shoulder; went to primary, then ortho, had MRI massive tear non surgical repair; start meloxicam, to try PT and if not help, total shoulder replacement shoulder pain is less and moving it better; is her dominant arm; 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[employer]; 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; is doing all work tasks; at home--problems lifting arm over her shoulder height; Reported Pain Level Pain Score Self Report Additional Pain Score Comments pain range in the past week 0-5/10; pain is much better than initially was, really improved in the past week; is a deep pain, not on the surface; increase pain: reaching up, end of day decrease pain: meloxicam, biofreeze, sleeping- now able to sleep through the night; when lie on R side, fingers go numb sometimes, roll and it eases right away Assessment PT Clinical Summary Argenis has the diagnosis of R shoulder massive rotator cuff tear, non surgical repair. It is her dominant UE. She reports initially she had bruising and the shoulder is much better now--more ROM and strength, with less pain. She has been moving her shoulder as she could tolerate. Quick DASH rating of 50% limitation in activity level. With the evaluation: Her R shoulder ROM is WNL and active motion does not increase her pain; she is able to use a 1# hand weight for shoulder flexion, abduction, extension and ER motions, for 5 reps without pain increase; Skilled PT services are indicated for modalities PRN for pain control, therapeutic exercises to increase R shoulder and scapular strength, with education for HEP and pain control. Plan of Care Interventions Electrical Stimulation,Hot Pack/Cold Pack,Manual Therapy,Patient/Caregiver Education,Therapeutic Activities,Therapeutic Exercise,Ultrasound Other Interventions taping PT Services Indicated Yes Treatment Frequency and 1-2x/wk for 8 visits Duration These treatments will address the objective and functional deficits as defined above. The patient will be advanced safely and appropriately in order for the patient to progress towards his/her prior level of function. Additional exercises will be introduced and as well as a comprehensive home exercise program upon discharge, if needed, ?to ensure carryover of functional gains achieved in the clinic. This treatment plan has been reviewed and agreement upon by the patient.
--- NOTE | 2024-03-28 08:38 | PCPTNOTE ---
Pt canceled today and all remainging visits due to insurance issues.
--- NOTE | 2024-04-03 08:36 | PTOPDC ---
Assessment and note entered by Genny Cazares, PT Assessment Status Discharge - Pt Not Present ICD-10 Condition Codes (PT) M25.511 Other ICD-10 Condition Codes ( M75.121--complete rotator cuff tear R PT) Onset November 2023 Subjective Information pt called on 03-28-24 and canceled all remaining PT appointments due to insurance issues. Assessment PT Clinical Summary Argenis received the PT evaluation and one treatment session. She called and canceled her appointments due to insurance issues. Discharge PT. The goals were not addressed. Plan of Care PT Services Indicated No
== END 2024-04-23 14:58 | disposition home or self-care (01) ==
LOC: ANHPT 14:45
PROVIDERS: PCP Physician Assistant; Visit Provider Orthopaedic Surgery
DX: M75.121 Complete rotator cuff tear or rupture of right shoulder, not specified as traumatic (principal)
CPT/HCPCS: 97110; 97161; 97530